=== PATIENT | male | born 1995 | race Native Hawaiian/Other Pacific Islander ===

== ENCOUNTER 2016-12-06 03:26 | Emergency (ER) | payer OTHER ==
[2016-12-06 03:38] VITALS: BP 132/66; PULSE 82; RESP 18; TEMP 98.3; O2SAT 99
[2016-12-06] MEDS ORDERED: Lidocaine 1% Inj (20ml) IJ STA (03:55)
--- NOTE | 2016-12-06 04:29 | ED PDOC ---
HPI: Skin/Bite Injury Time Seen by Provider: 12/06/16 03:54 Chief Complaint (Nursing): Abnormal Skin Integrity Chief Complaint (Provider): laceration History Per: Patient History/Exam Limitations: no limitations Additional Complaint(s): 21yoM in ED for eval of laceration sustained to right side of forehead after a trip and fall tonight. no LOC, BALL, vision changes, dizziness. tetatnus is uptodate. pt admits to bleeding no pain/ Past Medical History Reviewed: Historical Data, Nursing Documentation, Vital Signs Vital Signs: Last Vital Signs Temp 98.3 F 12/06/16 03:36 Pulse 82 12/06/16 03:36 Resp 18 12/06/16 03:36 BP 132/66 12/06/16 03:36 Pulse Ox 99 12/06/16 03:36 - Medical History PMH: No Chronic Diseases - Family History Family History: States: No Known Family Hx - Immunization History Hx Tetanus Toxoid Vaccination: Yes - Home Medications Home Medications: Ambulatory Orders Medication Instructions Recorded Cephalexin [cephalexin] 500 mg PO BID #20 cap 12/06/16 - Allergies Allergies/Adverse Reactions: Allergies Allergy/AdvReac Type Severity Reaction Status Date / Time Unobtainable Allergy Verified 12/06/16 03:54 Review of Systems ROS Statement: Except As Marked, All Systems Reviewed And Found Negative Eyes: Negative for: Vision Change Skin: Positive for: Lesions Neurological: Negative for: Headache Physical Exam - Reviewed Nursing Documentation Reviewed: Yes Vital Signs Reviewed: Yes - Physical Exam Appears: Positive for: Well, Non-toxic, No Acute Distress Head Exam: Positive for: ATRAUMATIC, NORMAL INSPECTION, NORMOCEPHALIC Skin: Positive for: Warm, Rash (laceration/abrasion noted to right forehead odd shape abrasions sized roughly 4cm by2.5cm and laceratoin 1.5cm irregular shape with partial thickness and active bleeding with contused tissue. ). Negative for: Normal Color Eye Exam: Positive for: Normal appearance, EOMI, PERRL. Negative for: Periorbital swelling ENT: Positive for: Normal ENT Inspection Neck: Positive for: Normal, Painless ROM Cardiovascular/Chest: Positive for: Regular Rate, Rhythm Respiratory: Positive for: CNT, Normal Breath Sounds Back: Positive for: Normal Inspection Extremity: Positive for: Normal ROM Neurologic/Psych: Positive for: Alert, Oriented - ECG O2 Sat by Pulse Oximetry: 99 - Progress ED Course And Treament: laceration Medical Decision Making Medical Decision Making: laceration repair in ED xerofoam-telfa pad as wound dressing suture removal in 5-6 days keflex abx Disposition - Clinical Impression Clinical Impression: Laceration - Patient ED Disposition Is Patient to be Admitted: No Counseled Patient/Family Regarding: Diagnosis, Need For Followup, Rx Given - Disposition Disposition: Routine/Home Disposition Time: 04:49 Condition: STABLE Additional Instructions: do not wet wound have suture removed in 5-6 days Prescriptions: Cephalexin [cephalexin] 500 mg PO BID #20 cap Instructions: Laceration (ED), Care For Your Stitches (ED) Laceration - Laceration Repair laceration Wound Length (In cm): 1.5 Description Of Wound: Irregular, Contused Tissue Wound Cleansed With: Sterile Saline Anesthesia: Lidocaine 1% Wound Examination: Irrigated With Saline, No FB With Wound Exploration Wound Debridement/Revision: Wound Debrided Wound Closure: Suture (7) Suture Technique And Material Used: Interrupted, Nylon (5-0) Wound Complexity: Intermediate abrasion Wound Length (In cm): abrasion Wound Cleansed With: Sterile Saline Wound Complexity: Intermediate
== END 2016-12-06 04:50 | disposition home or self-care (01) ==
LOC: H.ER 03:26
DX: S01.81XA Laceration without foreign body of other part of head, initial encounter (principal); W01.0XXA Fall on same level from slipping, tripping and stumbling without subsequent striking against object, initial encounter; Y92.89 Other specified places as the place of occurrence of the external cause